=== PATIENT | male | born 1985 | race Two or more races ===

== ENCOUNTER 2018-02-09 21:06 | Emergency (ER) | payer SELFPAY ==
[~2018-02-09] VITALS: Ht 167.6 cm; Wt 77.1 kg
[~2018-02-09 21:06] MED LIST: LEVE500T9 PO
--- NOTE | 2018-02-09 21:06 | NUR ---
"SEIZURE WITNESSED BY FAMILY WHILE IN LINE FOR [employer]" HX OF EPILEPSY AND TAKES KEPPRA FOR SZ. PT IS TACHYCARDIC WITH MILD SWELLING AND PAIN IN RIGHT ARM/HAND FROM FALL. PT IS A/OX2 ABLE TO MAKE NEEDS KNOWN AND FAMILY AT BEDSIDE FOR TRANSLATION. 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 SKIN WARM AND INTACT WITH SPORADIC ABRASIONS. WILL CONTINUE TO MONITOR FOR ANY CHANEGS DURING THE SHIFT. SZ PRECAUTIONS IN PLACE.
--- NOTE | 2018-02-09 21:07 | NUR ---
ER MD VALENCIA AT BEDSIDE
[2018-02-09] MEDS ORDERED: ONDANSETRON HCL/PF 4 MG/2 ML VIAL IVP ONE (21:30)
--- NOTE | 2018-02-09 21:30 | NUR ---
PT OFF TO CT
[2018-02-09 21:32] LABS: BASOPHILS # (AUTO) 0.1 /CMM (0.0-0.2); BASOPHILS % (AUTO) 0.5 % (0.0-2.0); EOSINOPHILS % (AUTO) 1.3 % (0.0-6.0); HEMATOCRIT 50 % (39-51); HEMOGLOBIN 16.9 g/dL (13.5-17.5); LYMPHOCYTES # (AUTO) 4.4 /CMM (0.8-4.8); MEAN CORPUSCULAR HEMOGLOBIN 32 PG (26.0-33.0); MEAN CORPUSCULAR HGB CONC 34 g/dl (31.0-36.0); MEAN CORPUSCULAR VOLUME 94 fL (80-96); MONOCYTES # (AUTO) 0.7 /CMM (0.1-1.30); MONOCYTES % (AUTO) 5.7 % (2.0-12.0); NEUTROPHILS # (AUTO) 7.5 /CMM (1.8-8.9); NEUTROPHILS % (AUTO) 58.5 % (43.0-81.0); PLATELET COUNT (AUTO) 267 /CMM (150-450); RDW COEFFICIENT OF VARIATION 12.1 (11.5-15.0); RED BLOOD CELL COUNT(AUTO) 5.35 MIL/uL (4.5-6.0); WHITE BLOOD COUNT (AUTO) 12.9 K/uL (4.3-11.0)
--- NOTE | 2018-02-09 21:41 | NUR ---
PT BACK FROM CT
[2018-02-09] MEDS ORDERED: ONDANSETRON HCL/PF 4 MG/2 ML VIAL ONE (21:42)
[2018-02-09 21:56] LABS: CALCIUM, SERUM 8.9 mg/dL (8.5-10.1); CREATININE 1.2 mg/dL (0.6-1.3); POTASSIUM 3.7 mmol/L (3.5-5.1)
--- NOTE | 2018-02-09 22:00 | NUR ---
PT STABLE. TO START KEPPRA IV PER MD VALENCIA ORDER. WILL CONTINUE TO MONITOR FOR ANY CHANGES DURING THE SHIFT.
[2018-02-09 22:01] LABS: ALBUMIN 4.3 g/dL (3.4-5.0); BILIRUBIN,DIRECT 0.1 mg/dL (0.0-0.2); BILIRUBIN,TOTAL 0.4 mg/dL (0.2-1.0)
[2018-02-09] MEDS ORDERED: KETOROLAC TROMETHAMINE INJ 30 MG/ML VIAL ONE (22:25)
[2018-02-09] MEDS ORDERED: LEVETIRACETAM (500MG) 500 MG/5 ML VIAL IV ONE (22:25)
[2018-02-09] MEDS ORDERED: LEVETIRACETAM (500MG) 500 MG in IV NS 0.9% 100 ML IV SCH (22:30)
[2018-02-09] MEDS ORDERED: KETOROLAC TROMETHAMINE INJ 30 MG/ML VIAL IV ONE (22:30)
--- NOTE | 2018-02-09 22:46 | NUR ---
PT OFF TO CT
[2018-02-10] MEDS ORDERED: ONDANSETRON HCL/PF - ER 4 MG/2 ML VIAL IV ONE
[2018-02-10] MEDS ORDERED: HYDROMORPHONE 1 MG/1 ML DISP.SYRIN IV ONE
[2018-02-10] MEDS ORDERED: ONDANSETRON HCL/PF 4 MG/2 ML VIAL ONE (00:12)
[2018-02-10] MEDS ORDERED: HYDROMORPHONE 1 MG/1 ML DISP.SYRIN ONE (00:12)
--- NOTE | 2018-02-10 01:02 | NUR ---
PT IS RESTING COMFORTABLY IN BED. WILL CONTINUE TO MONITOR FOR ANY CHANGES DURING THE SHIFT.
[2018-02-10 01:48] VITALS: BP 119/74
== END 2018-02-10 01:51 | disposition home or self-care (01) ==
LOC: ER 21:10
DX: G40.909 Epilepsy, unspecified, not intractable, without status epilepticus (principal); S02.3 Fracture of orbital floor; J34.2 Deviated nasal septum; Z79.899 Other long term (current) drug therapy; W18.39XD Other fall on same level, subsequent encounter
CPT/HCPCS: 36415; 70450; 70486; 72125; 73030; 80048; 80076; 80305; 85025; 93005; 96365; 96375; 96376; 99285; A6403; J1170; J1885; J1953; J2405 ×2; J7030

== ENCOUNTER 2018-03-23 11:57 | Emergency (ER) | payer SELFPAY ==
[~2018-03-23] VITALS: Ht 165.1 cm; Wt 86.2 kg
--- NOTE | 2018-03-23 12:12 | NUR ---
DANICA 32 YEAR OLD MALE C/O OF N&V. ALERT AND OREINTED X4, BREATHING EVEN AND UNLABORED WITH NO DISTRESS NOTED. SKIN WARM TOUCH AND INTACT. AWAITING TO BE SEEN BY .
[2018-03-23] MEDS ORDERED: ONDANSETRON 4 MG TAB.RAPDIS PO ONE (12:30)
[2018-03-23] MEDS ORDERED: ACETAMINOPHEN 325 MG TABLET PO ONE (12:30)
[2018-03-23] MEDS ORDERED: ACETAMINOPHEN ES 500 MG TABLET ONE (12:35)
[2018-03-23] MEDS ORDERED: ONDANSETRON 4 MG TAB.RAPDIS ONE (12:35)
[2018-03-23 13:06] LABS: BASOPHILS # (AUTO) 0.1 /CMM (0.0-0.2); EOSINOPHILS % (AUTO) 0.9 % (0.0-6.0); HEMATOCRIT 49 % (39-51); HEMOGLOBIN 16.5 g/dL (13.5-17.5); LYMPHOCYTES # (AUTO) 1.9 /CMM (0.8-4.8); MEAN CORPUSCULAR HGB CONC 34 g/dl (31.0-36.0); MEAN CORPUSCULAR VOLUME 94 fL (80-96); MONOCYTES # (AUTO) 0.5 /CMM (0.1-1.30); MONOCYTES % (AUTO) 6.7 % (2.0-12.0); NEUTROPHILS # (AUTO) 5.1 /CMM (1.8-8.9); NEUTROPHILS % (AUTO) 66.4 % (43.0-81.0); PLATELET COUNT (AUTO) 265 /CMM (150-450); RDW COEFFICIENT OF VARIATION 12.1 (11.5-15.0); RED BLOOD CELL COUNT(AUTO) 5.16 MIL/uL (4.5-6.0); WHITE BLOOD COUNT (AUTO) 7.7 K/uL (4.3-11.0)
[2018-03-23 13:09] LABS: CALCIUM, SERUM 8.7 mg/dL (8.5-10.1); CREATININE 1.1 mg/dL (0.6-1.3); POTASSIUM 3.6 mmol/L (3.5-5.1)
[2018-03-23 13:16] LABS: ALBUMIN 4.1 g/dL (3.4-5.0); BILIRUBIN,DIRECT 0.1 mg/dL (0.0-0.2); BILIRUBIN,TOTAL 0.6 mg/dL (0.2-1.0); INR 0.97 (0.85-1.15); TOTAL PROTEIN, SERUM 7.5 g/dL (6.4-8.2)
[2018-03-23] MEDS ORDERED: LEVETIRACETAM (500MG) 500 MG in IV NS 0.9% 100 ML IV SCH (14:30)
[2018-03-23 15:39] VITALS: BP 132/64
--- NOTE | 2018-03-23 15:41 | NUR ---
Patient discharged to home in stable condition. Written and verbal after care instructions given. Patient verbalizes understanding of instruction. IV removed. Catheter intact and site benign. Pressure and 4x4 applied to site. No bleeding noted.
== END 2018-03-23 15:42 | disposition home or self-care (01) ==
LOC: ER 11:58
DX: G40.909 Epilepsy, unspecified, not intractable, without status epilepticus (principal); F10.10 Alcohol abuse, uncomplicated; Y90.9 Presence of alcohol in blood, level not specified
CPT/HCPCS: 36415; 70450; 72125; 80048; 80076; 80177; 82962; 85025; 85730; 93005; 96365; 99285; A4606; J1953; J7030; Q0162; Z7610